=== PATIENT | male | born 1935 | race Caucasian/White ===

== ENCOUNTER 2019-04-13 13:46 | Emergency (ER) | payer MEDICARE, BC ==
[~2019-04-13] VITALS: Ht 174 cm; Wt 77.3 kg
[~2019-04-13 13:46] MED LIST: ASPIRIN EC81 M1 PO; BENICAR40 MG PO; MULTI-DAY VITAM1 TAB PO; NIFEDIPINE ER60 MG PO; PLAVIX75 MG PO; PRAVACHOL40 MG PO; VITAMIN D3400 UNI1 PO
[2019-04-13 13:50] VITALS: Ht 174 cm; Wt 77.3 kg
[2019-04-13] MEDS ORDERED: ANTIVERT12.5 MG PO (15:02)
[2019-04-13 15:13] VITALS: BP 158/88
== END 2019-04-13 15:14 | disposition home or self-care (01) ==
LOC: D.ER 13:46
DX: R20.2 Paresthesia of skin (principal); R53.1 Weakness; I10 Essential (primary) hypertension

== ENCOUNTER → 2019-06-03 13:07 | Outpatient (CLI) | payer MEDICARE, BC ==
[2019-04-13 13:50] VITALS: BMI 25.5
[~2019-06-03 13:07] MED LIST changes: +ANTIVERT12.5 MG PO; +COZAAR50 MG PO
[2019-06-03 13:57] LABS: CREATININE - SERUM 1.7 mg/dL (0.6-1.3)
== END | disposition home or self-care (01) ==
LOC: D.LAB 13:00 → D.CT 13:30
PROVIDERS: ATTEND Internal Medicine Cardiovascular Disease
DX: I65.23 Occlusion and stenosis of bilateral carotid arteries (principal)

== ENCOUNTER 2019-06-10 05:25 | Outpatient (CLI) | payer MEDICARE, BC ==
[~2019-06-10] VITALS: Ht 174 cm; Wt 80.0 kg
--- NOTE | ~2019-06-10 | HEMODYNAMI ---
PATIENT:RAKEL PAVON MEDICAL RECORD: [id number] : 33 [id number] ADMISSION DATE: 06/10/19 Generatedon:06/10/20199:21 Patient name: RAKEL PAVON Patient #: [id number] SSN: : 1 11/08/1934 Date of study: 06/10/2019 Page: Of Hemodynamic Procedure Report Patient Data Patient Demographics Procedure consent was obtained First Name: RAKEL Gender: Male Last Name: SAVANAH : 1935 [facility] Initial: E Age: 83 year(s) Patient #: [id number] Race: Additional ID: [id number] Contact details [address]: [address] [place] [address] State: [place] City: [place] Zip code: [address] Past Medical History Allergies Allergen Reaction Date Comments Reported Other allergy 07/13/2015 PENICILLINS Penicillins 06/10/2019 Admission Admission Data Admission Date: 06/10/2019 Admission Time: 5:25 Procedure Procedure Types Cath Procedure Peripheral Cath Diagnostic Procedure Gas Appliance Adjuster Peripheral Procedures Four Vessel Arteriogram Procedure Description Procedure Date Procedure Date: 06/10/2019 Procedure Start Time: 8:37 Procedure Staff Name Function Krishan Dewitt MD Performing Physician MARCIAL THOMPSON RT Monitor Keyona Morales RN Nurse Suri Silva RN Nurse Ronald English RT Scrub Procedure Data Cath Procedure Fluoroscopy Diagnostic fluoroscopy Total fluoroscopy Time: time: 11.2 min 11.2 min Entry Location Entry Primary Successful Side Size Upsize Upsize Entry Closure Succes sful Closure Location (Fr) 1 (Fr) 2 (Fr) Remarks Device Remarks Femoral Right 5 Fr Exoseal artery Diagnostic catheters Device Type Used For End Catheter Placement Merit ULTRA BOLUS FLUSH 5Fr 90CM catheter ([id number]) Merit Impress Gonzales 5FR. 100CM catheter ([id number]) Procedure Medications Medication Administration Route Dosage Heparin Flush Bag added to field 3 bags (1000units/500ml NS) Lidocaine 1% added to field 20 Hydralizine I.V. 20 mg Versed I.V. 0.5 mg Fentanyl I.V. 25 mcg Hemodynamics Rest Heart Rate: 76 (bpm) Snapshots Pre Cath Intra NCS Post Cath Vital Signs Time Heart Resp SPO2 etCO2 NIBP (mmHg) Rhythm Pain Sedation Rate (ipm) (%) (mmHg) Status Level (bpm) 8:16:47 78 11 99 28.6 Measuring NSR 0 (11) 10(A) , No pain 8:17:08 73 11 99 30 190/100(146) NSR 0 (11) 10(A) , No pain 8:21:34 73 8 100 30.8 191/92(145) NSR 0 (11) 10(A) , No pain 8:26:02 75 8 99 30.8 189/89(153) NSR 0 (11) 10(A) , No pain 8:30:31 71 8 99 32.3 188/89(146) NSR 0 (11) 10(A) , No pain 8:34:30 75 13 99 27.8 177/90(139) NSR 0 (11) 10(A) , No pain 8:38:52 83 15 99 27 172/88(137) NSR 0 (11) 8(A) , No pain 8:43:17 84 15 99 24.8 177/85(143) NSR 0 (11) 8(A) , No pain 8:47:41 81 13 99 31.6 167/88(152) NSR 0 (11) 8(A) , No pain 8:52:01 85 12 99 26.3 173/87(135) NSR 0 (11) 8(A) , No pain 8:56:21 85 9 100 22.5 173/83(136) NSR 0 (11) 8(A) , No pain 9:00:45 88 11 100 26.3 172/84(133) NSR 0 (11) 8(A) , No pain 9:05:06 83 11 100 25.5 169/85(144) NSR 0 (11) 8(A) , No pain 9:09:28 80 9 100 25.5 169/84(128) NSR 0 (11) 8(A) , No pain 9:13:48 88 11 100 18.8 174/97(122) NSR 0 (11) 8(A) , No pain 9:18:14 81 8 99 25.5 169/81(115) NSR 0 (11) 8(A) , No pain Medications Time Medication Route Dose Verified Delivered Reason Notes Eff ectiveness by by 8:22:58 Heparin Flush added 3bags M Dottie Dewitt used for Bag to MD MUNOZ procedure (1000units/500ml field NS) 8:23:14 Lidocaine 1% added 20ml Krishan Sinclair Esdras used for to vial MD MUNOZ procedure field 8:31:16 Hydralizine I.V. 20mg M Dottie Rand for MD Andrew HILL hypertension 8:35:25 Versed I.V. 0.5 M Dottie Rand for sedation mg MD Morales RN 8:36:00 Fentanyl I.V. 25 M Dottie Rand for sedation mcg MD Andrew HILL Procedure Log Time Note 8:02:48 Keyona Morales RN sent for patient. Start room use. 8:02:49 Time tracking: Regular hours (M-F 7:00 - 5:00) 8:02:55 Patient received from Outpatients to IR Alert and oriented. Tansferred to table in Supine position. 8:02:57 Signed procedure consent form obtained from patient. 8:02:58 Correct patient and procedure confirmed by team. 8:02:59 8:03:05 H&P Date Dictated: 06/10/2019 H&P Addendum completed by physician on day of procedure. (MUST COMPLETE FOR ALL OUTPATIENTS). 8:03:07 Pre-procedure instructions explained to patient. 8:03:08 Pre-op teaching completed and patient verbalized understanding. 8:03:12 Patient NPO since Midnight. 8:09:16 Patient allergic to Penicillins 8::19 Is the patient allergic to Iodine/contrast media? No. 8:09:21 Is patient on blood thinner?Yes last dose 06/09/19 8:09:27 ACC The patient was administered the following blood thiners within the last 24 hours: ACCAspirin, ACCPlavix 8:09:45 Patient diabetic? No. 8:09:49 8:09:53 Snore? Yes 8:09:57 Previous problem with sedation/anesthesia? No ? 8:10:00 Sleep apnea? No 8:10:01 Deviated septum? No 8:10:02 Opens mouth fully? Yes 8:10:03 Sticks out tongue? Yes 8:10:06 Airway obstruction? No ? 8:10:40 Dentures? Yes in tight 8:10:43 8:10:51 IV patent on arrival in left hand with 0.45%NaCl at O. 8:10:58 Pre procedure: right dorsailis pedis pulse Doppler 8:11:00 Pre procedure: left dorsailis pedis pulse Doppler 8:11:03 Pre procedure: right posterior tibial pulse Doppler 8:11:07 Pre procedure: left posterior tibial pulse Doppler 8:11:10 8:11:16 Use device set IR Diagnostic 8:11:29 Right groin area was prepped with chlora-prep and draped in sterile fashion 8:11:31 Alarms reviewed by Madisyn Jones 8:11:32 Sharps counted by scrub and verified by Camila 8:11:34 8:14:57 ECG and BP/O2 sat monitors applied to patient. 8:14:58 Baseline sample Acquired. 8:14:58 Vital chart was started 8:14:59 Full Disclosure recording started 8:15:10 8:15:13 Tegaderm 4 x 4 (1626W) opened to sterile field. 8:15:14 Sterile Angiographic Pack opened to sterile field. 8:15:15 Bag Decanter (2002S) opened to sterile field. 8:15:15 ACIST Manifold (34590) opened to sterile field. 8:15:16 ACIST Hand Control (23842) opened to sterile field. 8:15:16 ACIST Syringe (66847) opened to sterile field. 8:15:17 DOC .035 wire (U22458) opened to sterile field. 8:15:20 SHEATH 5FR [place] (PCO226) opened to sterile field. 8:15:21 MICROPUNCTURE 4FR Cook (O26282) opened to sterile field. 8:15:37 TUBING Contrast Injection High Pressure (HVX888L) opened to sterile field. 8:22:58 Heparin Flush Bag (1000units/500ml NS) 3bags added to field was administered by Krishan Dewitt MD; used for procedure; 8:23:14 Lidocaine 1% 20ml vial added to field was administered by Krishan Dewitt MD; used for procedure; 8:26:47 A [employer] ULTRA BOLUS FLUSH 5Fr 90CM catheter ([id number]) was advanced over the wire. 8:30:58 8:31:02 Physician arrived 8:31:16 Hydralizine 20mg I.V. was administered by Keyona Morales RN; for hypertension; 8:33:00 --------ALL STOP TIME OUT------ 8:33:00 Final Timeout: patient, procedure, and site verified with staff and physician. All members of the team are in agreement. 8:34:47 Right groin site verified by team. 8:34:51 Fire Safety Assessment: A--An alcohol-based skin anteseptic being used preoperatively., C--Open oxygen or nitrous oxide is being used. 8:34:57 2) 60-89 Mildly reduced kidney function, and other findings (as for stage 1) point to kidney disease. 8:35:08 Procedure started. 8:35:25 Versed 0.5 mg I.V. was administered by Keyona Morales RN; for sedation; 8:36:00 Fentanyl 25 mcg I.V. was administered by Keyona Morales RN; for sedation; 8:37:45 Local anesthetic to right femoral artery with Lidocaine 1% by Krishan Dewitt MD.INITIAL ACCESS ONLY 8:37:46 Access obtained with 4Fr micropunture. 8:37:52 8:40:22 A 5 Fr sheath was inserted into the Right Femoral artery 8:45:22 A Alexander Gonzales 5FR. 100CM catheter ([id number]) was advanced over the wire. 8:53:04 GLIDE WIRE .035 180CM STRAIGHT (IT2648) opened to sterile field. 8:53:10 TORQUE DEVICE PLASTIC .038 ( TD01) opened to sterile field. 9:12:43 Sheath removed intact; hemostasis achieved with Exoseal to the Right Femoral artery. 9:12:54 Procedure ended.(Physican Out) 9:14:46 Fluoroscopy time 11.20 minutes. 9:14:53 Dose Area Product 332 mGy/cm. 9:14:56 Sharps counted by scrub and verified by R.N. 9:15:01 Insertion/operative site no bleeding no hematoma. 9:15:06 Post right femoral artery:stable 9:15:11 Procedure and supply charges have been captured, reviewed, submitted and are correct. 9:20:55 Vital chart was stopped Device Usage Item Name Manufacture Quantity Catalog Number Hospital Part Current [facility] Lot# / Charge Number Stock Stock Serial# Code TUBING High Merit 1 [id number] 90667 769007 10 Pressure Medical Extension Tubing (Piedra) ([id number]) Tegaderm 4 x 4 3M 1 1626W 792234 815146 511038 5 (1626W) Sterile Cardinal 1 [id number] 162890 755511 5 Angiographic Health Pack Bag Decanter Microtek 1 2002S 481807 82677 210818 5 (2002S) Medical Inc. ACIST Manifold Acist 1 64515 478732 937769 368236 5 (16126) Medical Systems Inc ACIST Hand Acist 1 97842 677746 175209 503519 5 Control Medical (92175) Systems Inc ACIST Syringe Acist 1 84750 893583 699465 847821 20 (49752) Medical Systems Inc DOC .035 wire Cook Medical 1 R20129 191790 639856 5 (I83251) SHEATH 5FR Terumo 1 RIC520 991881 065942 963290 5 [place] (RII374) MICROPUNCTURE Cook Medical 1 A24999 442219 083050 718519 5 4FR Cook (T13708) TUBING Merit 1 [id number] 193987 540504 813797 5 [id number] Contrast Medical Injection High Pressure (BKV780L) Merit ULTRA Merit 1 [id number] 246975 824614 5 BOLUS FLUSH Medical 5Fr 90CM catheter ([id number]) Merit Impress Merit 1 [id number] 179972 149525 5 Gonzales 5FR. Medical 100CM catheter (098437QAM) Merit Impress Merit 1 [id number] 140671 872870 805682 5 Gonzales 5Fr Medical 125CM catheter (055125HMC) TUBING High Merit 1 [id number] 147797 495987 0 5 Pressure Medical Extension (IABP) GLIDE WIRE Terumo 1 IX2025 690104 773925 5 .035 180CM STRAIGHT (ZY6796) TORQUE DEVICE [place] 1 TD01 039845 813454 539941 5 PLASTIC .038 ( Scientific TD01) Signature Audit [place] Stage Time Signature Unsigned Intra-Procedure 06/10/2019 MARCIAL THOMPSON RT 9:21:55 AM (R) Signatures Monitor : MARCIAL THOMPSON RT Signature : Date : Time : [address] [address]
[~2019-06-10 05:25] MED LIST changes: -COZAAR50 MG PO
[2019-06-10 05:45] LABS: BASOPHILS 0.6 % (0-2); EOSINOPHILS 6.8 % (0-7); HEMATOCRIT 41.6 % (42.0-54.0); HEMOGLOBIN 15.2 g/dL (13.5-17.5); IMMATURE GRANULOCYTES 0.3 % (0-5); LYMPHOCYTES 40.4 % (15-50); MCH 33.9 pg (26.0-34.0); MCHC 36.5 g/dL (31.0-37.0); MCV 92.9 fL (80.0-100.0); MEAN PLATELET VOLUME 8.9 fL (7.4-10.4); MONOCYTES 7.1 % (2-11); NEUTROPHILS 44.8 % (40-80); PLATELET COUNT 175 10x3/uL (130-400); RBC 4.48 10x6/uL (4.20-6.10); RDW 12.6 % (11.5-14.5); WBC 7.2 10x3/uL (4.8-10.8)
[2019-06-10 06:01] LABS: ANION GAP 10.7 mmol/L (8-16); CALCIUM 9.2 mg/dL (8.5-10.1); CARBON DIOXIDE 28.3 mmol/L (21.0-32.0); CREATININE - SERUM 1.4 mg/dL (0.6-1.3)
[2019-06-10 06:03] LABS: APTT 26.6 SECONDS (22.8-39.4); INR 1.04 (0.85-1.17); PROTIME 13.1 SECONDS (11.6-15.0)
[2019-06-10] MEDS ORDERED: PLAVIX75 MG PO (06:15)
[2019-06-10 06:35] VITALS: BP 197/83; Ht 174 cm; Wt 80.0 kg
--- NOTE | 2019-06-10 09:50 | NUR ---
0385 SEE POST PROCEDURE CHECKLIST FOR VITAL SIGN TRENDS. FAMILY AT BEDSIDE.
--- NOTE | 2019-06-10 10:30 | NUR ---
[address] VICTOR' NURSE. GROIN SITE CDI WITHOUT HEMATOMA. 1015 FINGER FOOD SERVED, BED TILTED FOR HEAD ELEVATION. SON AND AT SIDE.
--- NOTE | 2019-06-10 11:32 | NUR ---
3262 CATRINA RETURNED CALL, I INFORMED HER OF DR. CRAFT' RELEASE TIME FOR THIS PT AND SHE SAID THANK YOU IF DR. FLETCHER HAS NOT ROUNDED ON THIS PT BEFORE RELEASE HE IS TO GO TO THE 'S OFFICE AFTER RELEASE.
--- NOTE | 2019-06-10 15:08 | NUR ---
4251 I CHECKED WITH CATRINA AND PT IS TO GO SEE DR. FLETCHER AT HIS OFFICE. TO OFFICE VIA .
[2019-06-11] MEDS ORDERED: COZAAR50 MG PO (09:28)
== END 2019-06-10 15:09 | disposition home or self-care (01) ==
LOC: D.SP 05:25
PROVIDERS: Radiology Vascular & Interventional Radiology; ATTEND Thoracic Surgery (Cardiothoracic Vascular Surgery)
DX: I65.21 Occlusion and stenosis of right carotid artery (principal); Z01.812 Encounter for preprocedural laboratory examination

== ENCOUNTER 2019-06-11 06:00 | Inpatient (IN) | payer MEDICARE, BC ==
[~2019-06-11] VITALS: Ht 174 cm; Wt 80.5 kg
[2019-06-11] VITALS (50 sets, daily range): BP systolic 109–182; BP diastolic 45–94; BMI 25.4; BMI 26.7
[2019-06-11 06:44] LABS: HEMATOCRIT 42.7 % (42.0-54.0); HEMOGLOBIN 15.6 g/dL (13.5-17.5); MCH 33.6 pg (26.0-34.0); MCHC 36.5 g/dL (31.0-37.0); MEAN PLATELET VOLUME 9.2 fL (7.4-10.4); RBC 4.64 10x6/uL (4.20-6.10); RDW 12.9 % (11.5-14.5); WBC 8.5 10x3/uL (4.8-10.8)
[2019-06-11 07:11] LABS: ALBUMIN 3.9 g/dL (3.4-5.0); ANION GAP 17.5 mmol/L (8-16); BILIRUBIN - TOTAL 1.52 mg/dL (0.2-1.3); CALCIUM 9.2 mg/dL (8.5-10.1); CARBON DIOXIDE 21.3 mmol/L (21.0-32.0); CREATININE - SERUM 1.5 mg/dL (0.6-1.3); POTASSIUM - SERUM 3.8 mmol/L (3.5-5.1); PROTEIN - SERUM 7.2 g/dL (6.4-8.2)
[2019-06-11 08:03] LABS: APTT 27.4 SECONDS (22.8-39.4); INR 1.03 (0.85-1.17)
[2019-06-11 08:15] LABS: APPEARANCE CLEAR (CLEAR); BACTERIA FEW /hpf (NONE SEEN); BILIRUBIN NEGATIVE (NEGATIVE); COLOR YELLOW (YELLOW); EPITHELIAL CELLS OCC /hpf (0-5); GLUCOSE NEGATIVE (NEGATIVE); KETONE SMALL mg/dL (NEGATIVE); NITRITE NEGATIVE (NEGATIVE); PROTEIN 1+ mg/dL (NEGATIVE); RED CELLS - URINE OCC /hpf (0-5); SPECIFIC GRAVITY 1.015 (1.005-1.020); UROBILINOGEN NORMAL (NORMAL); WHITE CELLS - URINE RARE /hpf (0-5)
[2019-06-11 08:16] LABS: MUCUS <1+ /lpf (NONE SEEN)
[2019-06-11] MEDS ORDERED: COZAAR50 MG PO (09:28)
--- NOTE | 2019-06-11 15:28 | NUR ---
PT ARRIVED AT 1341 LEFT INCISION WITH RASTA DRAIN, ICE APPLIED. RIGHT SUBCLAVIAN CENTRAL LINE DRESSING CDI, RIGHT RADIAL A LINE- WRIST PROTECTOR IN PLACE GOOD WAVE FORM. CRITICORE CORONA CATH. NEURO CHECKS WNL. NOTIFIED BY DR FLETCHER, MONITORS ON AND WORKING, WILL CONTINUE TO OBSERVE.
--- NOTE | 2019-06-11 16:00 | NUR ---
FAMILY AT BEDSIDE, HOB UP 45DEG, MONITORS ON AND WORKING, NEURO CHECKS WNL, PT AAO, VITALS STABLE, CALL LIGHT WITHIN REACH, WILL CONTINUE TO OBSERVE.
--- NOTE | 2019-06-11 18:00 | NUR ---
PT SITTING UP IN BED, FAMILY AT BEDSIDE, PT TOLERATES REGULAR DIET WELL. PT DENIES ANY COMPLAINT OF PAIN OR DISCOMFORT AT THIS TIME. CALL LIGHT WITHIN REACH, WILL CONTINUE TO OBSERVE.
--- NOTE | 2019-06-11 19:30 | NUR ---
PT AOX4, LT PUPIL IS BIGGER THAN RIGHT PUPIL, PT STATES PUPILS WERE UNEQUAL PRIOR TO SURGERY, BOTH PUPILS REACTIVE TO LIGHT. TONGUE MIDLINE, WEIGHER AND CRUSHER EQUAL, STRENGTH IN EXTREMITIES EQUAL. FOLLOWS COMMANDS. LUNG SOUNDS CLEAR/DIMINISHED, SPO2 97, 2L O2 VIA NC. S1S2 HEARD, PERIPHERAL PULSES PRESENT. LT NECK INCISION WITH DRESSING CDI, NO SWELLING PRESENT. LT CHEST RASTA SITE WITH DRESSING CDI, BLOODY DRAINAGE, RASTA COMPRESSED. PT REPOSITIONED FOR COMFORT. PROMINENCES BRIDGED. DENIES PAIN AT THIS TIME, DENIES FURTHER NEEDS. CALL LIGHT AND BEDSIDE TABLE WITHIN PT REACH. CPOC.
--- NOTE | 2019-06-11 21:30 | NUR ---
SEE IV FLOWSHEET FOR TITRATIONS, NO OTHER CHANGES NOTED AT THIS TIME. VSS, PT REPOSITIONED FOR COMFORT. REACHING 1500 X10 ON I/S. FRESH WATER TO BEDSIDE. DENIES FURTHER NEEDS. CALL LIGHT WITHIN PT REACH. CPOC.
--- NOTE | 2019-06-11 23:30 | NUR ---
REASSESSMENT COMPLETE, SEE FLOWSHEET. NO CHANGES AT THIS TIME. PT REPOSITIONED WITH PROMINENCES BRIDGED. DENIES PAIN, VSS.
[2019-06-12] VITALS (58 sets, daily range): BP systolic 107–151; BP diastolic 42–71; Ht 174 cm; Wt 80.5 kg
--- NOTE | 2019-06-12 00:30 | NUR ---
PT REPOSITIONED, PARTIAL LINEN CHANGE PROVIDED. FRESH WATER PROVIDED. VSS, DENIES PAIN AT THIS TIME. DENIES FURTHER NEEDS. CALL LIGHT WITHIN PT REACH. CPOC.
--- NOTE | 2019-06-12 03:30 | NUR ---
REASSESSMENT COMPELTE, SEE FLOWSHEET. PT REMAINS AOX4, TONGUE MIDLINE, CENTRAL OFFICE INSPECTOR EQUAL, MOVES EXTREMITIES X4 AGAINST GRAVITY. LT NECK WITH DRSG CDI, NO TRACHEAL DEVIATION. DENIES PAIN, VSS. CPOC.
--- NOTE | 2019-06-12 05:43 | NUR ---
NIMA AT BEDSIDE, RASTA DRAIN D/C'D, TOLERATED WELL. VSS.
--- NOTE | 2019-06-12 07:00 | NUR ---
REPORT RECIEVED FROM THE OFF GOING RN. SEE ASSESSMENT IN THE PTS FLOW SHEET. PT LYING IN BED A&O X4. PUPILS UNSYMMETRICAL BUT REACTIVE TO LIGHT. PT STATES IT HAS BEEN LIKE THAT FOR A WHILE. LEFT NECK DRESSING C/D/I. LEFT UPPER CHEST DRESSING C/D/I. RIGHT SUBCLAVIAN DRESSING C/D/I. NITRO AND CLEVIPREX INFUSING. SEE IV FLOW SHEET FOR RATES. NITRO DECREASED FOR BP PARAMETERS. RIGHT RADIAL IRMA NOTED. WRIST PROTECTOR ON. CAP REFILL <[address] WITH CLEAR, YELLOW URINE. PT SYMMETRICAL WITH ROAD WORKER AND SMILE. TRACHEA MIDLINE WITH NO STRIDOR NOTED. PT DENIES DYSPAGIA. DENIES PAIN. CALL LIGHT IN REACH. WILL CONT POC.
--- NOTE | 2019-06-12 07:52 | NUR ---
PT PULLS ABOUT 2000 ON HIS IS. INSTRUCTED TO USE 10X'S/H. WILL CONT POC.
--- NOTE | 2019-06-12 08:00 | NUR ---
BREAKFAST TRAY PROVIDED FOR THE PT. PT TOLERATING WELL. NO DYSPAGIA NOTED. VSS WILL CONT POC. NITRO OFF.
--- NOTE | 2019-06-12 08:47 | NUR ---
REPORT GIVEN TO AARTI HILL.
--- NOTE | 2019-06-12 13:00 | NUR ---
REC'D REPORT AND RESUMED CARE, AAO, SITTING UP IN BED, DENIES PAIN, STATES HE IS READY TO GO HOME, ASSESSMENT COMPLETED, AT BEDSIDE, NO NEEDS AT THIS TIME, CALL LIGHT IN REACH
--- NOTE | 2019-06-12 13:58 | OP ---
PATIENT NAME: RAKEL PAVON MEDICAL RECORD: [id number] :33 LOCATION:[facility].CV08 ADMISSION DATE:06/11/19 SURGEON: LUPILLO FLETCHER MD DATE OF OPERATION: 06/11/2019 SURGEON: Lupillo Fletcher MD ANESTHESIA: General; Sid Doty MD OPERATION PERFORMED: Left carotid endarterectomy with patch angioplasty. PREOPERATIVE DIAGNOSIS: Critical left internal carotid artery stenosis. POSTOPERATIVE DIAGNOSIS: Critical left internal carotid artery stenosis. INDICATION FOR OPERATION: Critical left internal carotid artery stenosis. FINDINGS AT OPERATION: Critical left internal carotid artery stenosis. There were no EEG changes with clamping or unclamping of the carotid. ESTIMATED BLOOD LOSS: Less than 75 mL. DESCRIPTION OF PROCEDURE: After informed consent, adequate preoperative medication, and evaluation, the patient was brought to the operating room and placed on the table in supine position. After induction of general endotracheal anesthesia and application of appropriate monitoring devices, the left neck and chest were prepped and draped in sterile field utilizing Betadine scrub, alcohol, and Betadine solution. A Betadine-impregnated drape was also used. An oblique incision was made in skin crease. Dissection was carried down to the fascia. Hemostasis was maintained with electrocautery. Facial vein was identified and divided. Utilizing sharp dissection, common carotid, internal and external carotid arteries were dissected free of surrounding structures, protecting the neurological structures. The patient was given a calculated dose of heparin. After 3 minutes, clamps were applied. After 2 minutes, no EEG change. An arteriotomy was made and extended with Dominguez scissors. Artery underwent endarterectomy sharply. Artery underwent extensive debridement and irrigation. Utilizing a CorMatrix vascular patch and a running 6-0 Prolene suture, the arteriotomy was closed with patch angioplasty technique. All maneuvers to remove trapped air were performed. Clamps were removed sequentially. There were no EEG changes. The patient was given a calculated dose of protamine to reverse the heparin. Hemostasis was achieved. A #7 Hakan-Poole drain was left to depths of the wound and brought through base of the neck. Neck was again irrigated. Instrument count and sponge count were correct times 2. Neck was closed in layers utilizing 3-0 Vicryl on deep subcutaneous tissue and 5-0 subcuticular Monocryl on skin. Sterile dressings were applied. The patient tolerated the procedure well and was transferred to CV ICU in satisfactory condition. TRANSINT:[id number] Voice Confirmation ID: [id number] DOCUMENT ID: [id number] OPERATIVE REPORT [id number] RAKEL PAVON EDWARD MD at 1358 CC: [id number] DICTATION DATE: 06/11/19 1337 ACCREDITATION MANAGER: 06/11/19 1417 [place] [address]
--- NOTE | 2019-06-12 14:05 | NUR ---
PT EVAL AND AMBULATION WITH PHYSICAL THERAPIST, TOLERATED WITHOUT DIFFICULTY
--- NOTE | 2019-06-12 15:17 | NUR ---
CHG BATH COMPLETED, TOLERATED WITHOUT DIFFICULTY
--- NOTE | 2019-06-12 15:27 | MORECARE ---
CASE MANAGEMENT DISCHARGE SUMMARY PATIENT: RAKEL PAVON UNIT: [id number] ADM DATE: 06/11/19 AGE: 83 : [birth year] SEX: M ROOM/BED: [facility] AUTHOR: AVINASHDOC PHYSICIAN: REFERRING PHYSICIAN: GEOFFREY FLETCHER MD DATE OF SERVICE: 06/12/19 Discharge Plan Patient Name: RAKEL PAVON Facility: [facility]:[place] : 1935 Planned Disposition: Home Anticipated Discharge Date: Discharge Date: Expected LOS: Initial Reviewer: [email or web address] Initial Review Date: 06/11/2019 Generated: 06/12/19 4:27 pm Comments DCP- Discharge Planning Updated by [email or web address]: Anna Donaldson on 06/12/19 2:[address] Patient Name: RAKEL PAVON Admission Status: Urgent Accout number: [id number] Admission Date: 06-11-2019 : 1935 Admission Diagnosis: Attending: GEOFFREY FLETCHER Current LOS: 1 Anticipated DC Date: Planned Disposition: Home Primary Insurance: MEDICARE A & B Discharge Planning Comments: CM met with patient at bedside after explaining CM role and obtaining verbal consent. Patient lives at home with his Tracy where he is independent with his care and plans to return there upon discharge. Patient feels this would be a safe discharge. CM discussed availability / needs of home health and medical equipment. Patient denies any discharge needs at this time. Patient states he will have his family drive him home upon discharge. CM will continue to follow and assist as needed with discharge planning / needs. Life Underwriter: Anna Donaldson DCPIA - Discharge Planning Initial Assessment Updated by [email or web address]: Anna Donaldson on 06/12/19 3:25 pm * Is the patient Alert and Oriented? Yes * How many steps to enter\exit or inside your home? * PCP B[facility]ARD * [facility] * Preadmission Environment Home with Family * ADLs Independent * Other Equipment CANE * List name and contact numbers for known caregivers / representatives who currently or will assist patient after discharge: TRACY PAVON - [facility]- [phone] * Verbal permission to speak to the caregivers and representatives has been obtained from the patient. Yes * Community resources currently utilized None * Additional services required to return to the preadmission environment? No * Can the patient safely return to the preadmission environment? Yes * Has this patient been hospitalized within the prior 30 days at any hospital? No Patient Name: RAKEL PAVON Page 25562 at 1527 All edits/amendments must be made on the electronic document DICTATION DATE: 06/12/191526 INDUSTRIAL CONTROLS TECHNICIAN: PRASAD 06/12/191526 RPT#: [id number] DC DATE: STATUS: ADM IN [facility] [address] [place] [address] END OF REPORT
--- NOTE | 2019-06-12 17:00 | NUR ---
DINNER TRAY TO BEDSIDE, ASSIST WITH SET UP INDEPENDENT WITH EATING
--- NOTE | 2019-06-12 18:10 | NUR ---
CALLED TO ROOM, HAVING TROUBLE ADJUSTING BED, EDUCATED RE: BUTTONS, NOW FABIOLA TO ADJUST BED APPROPRIATELY
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
--- NOTE | 2019-06-12 21:10 | NUR ---
NO CHANGES IN NEURO CHECKS FROM PREVIOUS, AAOX4, FOLLOWING COMMANDS. DENIES NEEDS. CALL LIGHT WITHIN REACH. WILL CONTINUE TO MONITOR.
--- NOTE | 2019-06-12 23:04 | NUR ---
REASSESSMENT COMPLETED PER FLOW SHEET, SEE FOR DETAILS. NO ACUTE CHANGES NOTED. DENIES NEEDS. CALL LIGHT WITHIN REACH. WILL CONTINUE TO MONITOR.
[2019-06-13] VITALS (10 sets, daily range): BP systolic 120–151; BP diastolic 62–73
--- NOTE | 2019-06-13 01:00 | NUR ---
RESTING IN BED, DENIES NEEDS AT THIS TIME, CALL LIGHT WITHIN REACH. WILL CONTINUE TO MONITOR.
--- NOTE | 2019-06-13 03:10 | NUR ---
REASSESSMENT COMPLETED PER FLOW SHEET, SEE FOR DETAILS. NO ACUTE CHANGES NOTED. 350 ML OF SANCHO UOP EMPTIED FROM URINAL. DENIES NEEDS. CALL LIGHT WITHIN REACH. WILL CONTINUE TO MONITOR.
--- NOTE | 2019-06-13 05:10 | NUR ---
AAOX4, DENIES NEEDS AT THIS TIME, NO ACUTE DISTRESS NOTED. WILL CONTINUE TO MONITOR.
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
--- NOTE | 2019-06-13 14:19 | MORECARE ---
CASE MANAGEMENT DISCHARGE SUMMARY PATIENT: RAKEL PAVON UNIT: [id number] ADM DATE: 06/11/19 AGE: 83 : 34 SEX: M ROOM/BED: D[facility] AUTHOR: AVINASH,DOC PHYSICIAN: REFERRING PHYSICIAN: GEOFFREY LFETCHER MD DATE OF SERVICE: 06/13/19 Discharge Plan Patient Name: RAKEL PAVON Facility: [facility]:[place] : 1935 Planned Disposition: Home Anticipated Discharge Date: Discharge Date: 06/13/2019 Expected LOS: Initial Reviewer: [email or web address] Initial Review Date: 06/11/2019 Generated: 06/13/19 3:18 pm Comments DCP- Discharge Planning Updated by [id number]: Anna Donaldson on 06/12/19 2:[address] Patient Name: RAKEL PAVON Admission Status: Urgent Accout number: [id number] Admission Date: 06-11-2019 : 1935 Admission Diagnosis: Attending: GEOFFREY FLETCHER Current LOS: 1 Anticipated DC Date: Planned Disposition: Home Primary Insurance: MEDICARE A & B Discharge Planning Comments: CM met with patient at bedside after explaining CM role and obtaining verbal consent. Patient lives at home with his Tracy where he is independent with his care and plans to return there upon discharge. Patient feels this would be a safe discharge. CM discussed availability / needs of home health and medical equipment. Patient denies any discharge needs at this time. Patient states he will have his family drive him home upon discharge. CM will continue to follow and assist as needed with discharge planning / needs. Waxed Bag Machine Operator: Anna Donaldson DCPIA - Discharge Planning Initial Assessment Updated by [email or web address]: Anna Donaldson on 06/12/19 3:25 pm * Is the patient Alert and Oriented? Yes * How many steps to enter\exit or inside your home? * PCP BERNARD * [facility] * Preadmission Environment Home with Family * ADLs Independent * Other Equipment CANE * List name and contact numbers for known caregivers / representatives who currently or will assist patient after discharge: TRACY PAVON - [facility]- [phone] * Verbal permission to speak to the caregivers and representatives has been obtained from the patient. Yes * Community resources currently utilized None * Additional services required to return to the preadmission environment? No * Can the patient safely return to the preadmission environment? Yes * Has this patient been hospitalized within the prior 30 days at any hospital? No Coverage Notice Reviewer: [id number] Poornima Donaldson Notice Issued Date-Time: 06/12/2019 15:20 Notice Type: IM Discharge Notice Notice Delivered To: Patient Relationship to Patient: Self Carpenter Railcar Name: Delivery Method: HAND - Hand Delivered Shantal Days: Prior Verbal Notification: Recipient Understood Notice: Yes Recipient Signature: Yes Med Rec Note Co-signed by Attending: Coverage Notice Comment: Last DP export: 06/12/19 2:27 p Patient Name: RAKEL PAVON Page 42055 at 1419 All edits/amendments must be made on the electronic document DICTATION DATE: 06/13/191417 SUGAR MILL WORKER: PRASAD 06/13/19 1418 RPT#: [id number] DC DATE:06/13/19 STATUS: DIS IN [facility] [address] [place] [address] END OF REPORT
== END 2019-06-13 10:30 | disposition home or self-care (01) | DRG 38 ==
LOC: D.CVICU 06:00 → D.SDCHOLD 06:00 → D.CVICU 12:46
PROVIDERS: ADMIT Internal Medicine Cardiovascular Disease; ATTEND Internal Medicine Cardiovascular Disease
PROC: 03UL0JZ Supplement Left Internal Carotid Artery with Synthetic Substitute, Open Approach (ICD-10-PCS; 2019-06-11)
PROC: 03CL0ZZ Extirpation of Matter from Left Internal Carotid Artery, Open Approach (ICD-10-PCS; principal; 2019-06-11 11:15)
DX: I65.23 Occlusion and stenosis of bilateral carotid arteries (principal); I69.351 Hemiplegia and hemiparesis following cerebral infarction affecting right dominant side; I10 Essential (primary) hypertension; N28.9 Disorder of kidney and ureter, unspecified

== ENCOUNTER 2019-08-21 15:27 | Inpatient (IN) | payer MEDICARE, BC ==
[~2019-08-21] VITALS: Ht 172.7 cm; Wt 81.4 kg
[~2019-08-21 15:27] MED LIST changes: +COZAAR50 MG PO
[2019-08-21 16:45] LABS: APPEARANCE CLEAR (CLEAR); BILIRUBIN NEGATIVE (NEGATIVE); COLOR YELLOW (YELLOW); GLUCOSE NEGATIVE (NEGATIVE); KETONE NEGATIVE (NEGATIVE); NITRITE NEGATIVE (NEGATIVE); PROTEIN 2+ mg/dL (NEGATIVE); UROBILINOGEN NORMAL (NORMAL)
[2019-08-21 16:47] LABS: BACTERIA FEW /hpf (NEGATIVE); EPITHELIAL CELLS 0-5 /hpf (0-5); RED CELLS - URINE 0-5 /hpf (0-5); WHITE CELLS - URINE 0-5 /hpf (NEGATIVE)
[2019-08-21 16:49] LABS: HEMATOCRIT 41.2 % (42.0-54.0); MCH 33.7 pg (26.0-34.0); MCV 99.3 fL (80.0-100.0); RBC 4.15 10x6/uL (4.20-6.10); RDW 12.7 % (11.5-14.5); WBC 7.3 10x3/uL (4.8-10.8)
[2019-08-21 16:52] LABS: APTT 26.7 SECONDS (22.8-39.4); INR 1.11 (0.85-1.17); PROTIME 13.8 SECONDS (11.6-15.0)
[2019-08-21 17:09] LABS: ALBUMIN 3.8 g/dL (3.4-5.0); ANION GAP 11.8 mmol/L (8-16); BILIRUBIN - TOTAL 0.68 mg/dL (0.2-1.3); CARBON DIOXIDE 28.5 mmol/L (21.0-32.0); CREATININE - SERUM 1.6 mg/dL (0.6-1.3); POTASSIUM - SERUM 4.3 mmol/L (3.5-5.1); PROTEIN - SERUM 7.3 g/dL (6.4-8.2)
[2019-08-22] VITALS (15 sets, daily range): BP systolic 103–189; BP diastolic 42–98; BMI 26.9; BMI 26.5
--- NOTE | 2019-08-22 12:45 | NUR ---
BLOOD NOTED AROUND [place] AT END OF CASE. NIMA CHASE NOTIFIED JUSTINE. CVICU NURSE NOTIFIED. NO FURTHER ORDERS RECEIVED.
--- NOTE | 2019-08-22 12:54 | NUR ---
REC'D PT TO CVICU. ALL MONITORING EQUIPMENT ATTACHED AND ALARMS SET.
--- NOTE | 2019-08-22 13:38 | NUR ---
I.S. STARTED. PT PULLS 1500 TO 2000 WITH GOOD EFFORT. FAMILY AT BS.
--- NOTE | 2019-08-22 15:13 | NUR ---
SBP 146. NITRO INITIATED AT 10MCG/MIN. TITRATED TO 12MCG/MIN. SBP NOW 132.
--- NOTE | 2019-08-22 17:24 | MORECARE ---
CASE MANAGEMENT DISCHARGE SUMMARY PATIENT: RAKEL PAVON UNIT: [id number] ADM DATE: 08/22/19 AGE: 83 : 34 SEX: M [facility] AUTHOR: DECLAN DA SILVA PHYSICIAN: REFERRING PHYSICIAN: GEOFFREY FLETCHER MD DATE OF SERVICE: 08/22/19 Discharge Plan Patient Name: RAKEL PAVON [facility] [facility] 1935 Planned Disposition: Home Anticipated Discharge Date: Discharge Date: Expected LOS: Initial Reviewer: [email or web address] Initial Review Date: 08/22/2019 Generated: 08/22/19 6:24 pm DCPIA - Discharge Planning Initial Assessment Updated by [email or web address]: Anna Donaldson on 08/22/19 5:23 pm * Is the patient Alert and Oriented? Yes * How many steps to enter\exit or inside your home? * PCP DR WAGNER * [facility] * Preadmission Environment Home with Family * ADLs Independent * Equipment Cane * List name and contact numbers for known caregivers / representatives who currently or will assist patient after discharge: SUDHEER PAVON - [facility] - [phone] * Verbal permission to speak to the caregivers and representatives has been obtained from the patient. Yes * Community resources currently utilized None * Additional services required to return to the preadmission environment? No * Can the patient safely return to the preadmission environment? Yes * Has this patient been hospitalized within the prior 30 days at any hospital? No Patient Name: RAKEL PAVON Page 61607 at 1724 All edits/amendments must be made on the electronic document DICTATION DATE: 08/22/191723 PUMP STATION OPERATOR: PRASAD 08/22/191723 RPT#: [id number] DC DATE: STATUS: ADM IN [facility] [address] [place] [address] END OF REPORT
--- NOTE | 2019-08-22 17:32 | MORECARE ---
CASE MANAGEMENT DISCHARGE SUMMARY PATIENT: RAKEL PAVON UNIT: [id number] ADM DATE: 08/22/19 AGE: 83 : 34 SEX: M ROOM/BED: D[facility] AUTHOR: AVINASH,DOC PHYSICIAN: REFERRING PHYSICIAN: GEOFFREY FLETCHER MD DATE OF SERVICE: 08/22/19 Discharge Plan Patient Name: RAKEL PAVON Facility: [facility]:[place] : 1935 Planned Disposition: Home Anticipated Discharge Date: Discharge Date: Expected LOS: Initial Reviewer: [email or web address] Initial Review Date: 08/22/2019 Generated: 08/22/19 6:31 pm Comments DCP- Discharge Planning Updated by [email or web address]: Anna Donaldson on 08/22/19 4:[address] Patient Name: RAKEL PAVON Admission Status: Urgent Accout number: [id number] Admission Date: 08-22-2019 : 1935 Admission Diagnosis: Attending: GEOFFREY FLETCHER Current LOS: 1 Anticipated DC Date: Planned Disposition: Home Primary Insurance: MEDICARE A & B Discharge Planning Comments: CM met with patient at bedside after explaining CM role and obtaining verbal consent. Patient lives at home with his [place] where he is independent with his care and plans to return there upon discharge. Patient feels this would be a safe discharge. CM discussed availability / needs of home health and medical equipment. Patient denies any discharge needs at this time. Patient states he will have his family drive him home upon discharge. CM will continue to follow and assist as needed with discharge planning / needs. Labor Specialist: Anna Donaldson DCPIA - Discharge Planning Initial Assessment Updated by [email or web address]: Anna Donaldson on 08/22/19 5:23 pm * Is the patient Alert and Oriented? Yes * How many steps to enter\exit or inside your home? * PCP DR WAGNER * [facility] * Preadmission Environment Home with Family * ADLs Independent * Equipment Cane * List name and contact numbers for known caregivers / representatives who currently or will assist patient after discharge: TRACY PAVON - [facility] - [phone] * Verbal permission to speak to the caregivers and representatives has been obtained from the patient. Yes * Community resources currently utilized None * Additional services required to return to the preadmission environment? No * Can the patient safely return to the preadmission environment? Yes * Has this patient been hospitalized within the prior 30 days at any hospital? No Last DP export: 08/22/19 4:24 p Patient Name: RAKEL PAVON Page [phone] at 1732 All edits/amendments must be made on the electronic document DICTATION DATE: 08/22/191730 SALARY AND WAGE ADMINISTRATOR: PRASAD 08/22/191730 RPT#: [id number] DC DATE: STATUS: ADM IN [facility] [address] [place] [address] END OF REPORT
--- NOTE | 2019-08-22 17:49 | NUR ---
REPORTED LOW UOP TO DR FLETCHER HERE IN ICU. FLUSHED FC. NO BLOODY CLOTS SEEN. FLUSHES EASILY. WILL BLADDER SCAN.
--- NOTE | 2019-08-22 18:07 | NUR ---
BLADDER SCANNED AND ZERO IS RESULTS.
--- NOTE | 2019-08-22 18:59 | NUR ---
DR FLETCHER NOTIFIED OF ZERO OUT ON BLADDER SCAN AND LOW UOP. REC'D ORDERS. REC'D ORDER TO TURN OFF NITRO AND ALLOW BP TO BE UP TO 150.
--- NOTE | 2019-08-22 19:00 | NUR ---
Received patient resting in bed with eyes open, assessment completed per flowsheet. Patient AO x4, answers appropriately/follows instructions. R anterior Neck incision dressing CDI, no difficulties breathing/swallowing noted. S1/S2 noted Sinus Aditya on telemetry, rythmic and regular. Breathing is even/unlabored on 2L via NC with O2 sat 99%, lung sounds clear bilateral upper and mid with diminished lower. R upper chest RASTA x1 with small bloody drainage. Abdomen is round/soft with bowel sounds active x4, non-tender. Criticore secured, scant yellow urine noted. L radial A-line with good waveform, wrist protector in use. Remaining pulses palpable with cap refill < 3 sec, skin cool/dry. Denies pain or other needs at this time, see flowsheet for details. All VSS and will continue to monitor.
[2019-08-22 19:51] LABS: MCH 33.2 pg (26.0-34.0); MCHC 33.2 g/dL (31.0-37.0); MEAN PLATELET VOLUME 8.6 fL (7.4-10.4); RDW 12.8 % (11.5-14.5); WBC 7.4 10x3/uL (4.8-10.8)
[2019-08-22 20:00] LABS: HEMATOCRIT 31.6 % (42.0-54.0); HEMOGLOBIN 10.5 g/dL (13.5-17.5); RBC 3.16 10x6/uL (4.20-6.10)
--- NOTE | 2019-08-22 20:15 | NUR ---
Patient demonstrated 1000-1250ml on IS x10 attempts, Flutter performed correctly with RT at bedside.
[2019-08-22 20:17] LABS: BILIRUBIN - TOTAL 0.8 mg/dL (0.2-1.3); CALCIUM 7.5 mg/dL (8.5-10.1); CARBON DIOXIDE 24.6 mmol/L (21.0-32.0)
[2019-08-22 20:18] LABS: ALBUMIN 2.7 g/dL (3.4-5.0); ANION GAP 12.6 mmol/L (8-16); CREATININE - SERUM 2.3 mg/dL (0.6-1.3); POTASSIUM - SERUM 5.2 mmol/L (3.5-5.1); PROTEIN - SERUM 5.4 g/dL (6.4-8.2)
--- NOTE | 2019-08-22 20:30 | NUR ---
Spoke to Dr Jean-Baptiste via phone, updated on patient status. All IV ports swab capped/labeled, patient denies needs at this time and will continue to monitor.
--- NOTE | 2019-08-22 22:50 | NUR ---
Reassessment completed per flowsheet, no changes noted from previous assessment. R anterior neck incision dressing CDI, no difficulty breathing/swallowing noted. R upper chest RASTA x1 with small bloody drainage, compressed. S1/S2 noted Sinus Aditya on telemetry, rythmic and regular. Breathing is even/unlabored on 2L via NC with O2 sat 99%, lung sounds clear bilateral upper and mid with diminished lower. L radial A-line with good waveform, wrist protector in use. Remaining pulses palpable with cap refill < 3 sec, skin warm/dry. See flowsheet for details, all VSS and will continue to monitor.
[2019-08-23] VITALS (25 sets, daily range): BP systolic 113–164; BP diastolic 41–74; Ht 172.7 cm; Wt 81.4 kg
--- NOTE | 2019-08-23 01:00 | NUR ---
Patient resting in bed with eyes closed, no s/s of distress at this time. Urine output remains decreased post Furosemide, < 30ml/hr. HR/BP remain stable, no further needs and will continue to monitor.
--- NOTE | 2019-08-23 02:50 | NUR ---
Reassessment completed per flowsheet, no changes noted from previous assessment. R anterior neck incision dressing CDI, no difficulty breathing/swallowing noted. R upper chest RASTA x1 with small bloody drainage, dressing CDI. S1/S2 noted Sinus Aditya on telemetry, rythmic and regular. Breathing is even/unlabored on 2L via NC with O2 sat 100%, lung sounds clear bilateral upper and mid with diminished lower. L radial A-line with good waveform, remaining pulses palpable. Denies pain or other needs at this time, see flowsheet for details. All VSS and will continue to monitor.
--- NOTE | 2019-08-23 05:00 | NUR ---
Patient resting in bed with eyes open, no s/s of distress at this time. R anterior neck incision dressing CDI, no difficulty breathing/swallowing noted. R upper chest RASTA x1 with small bloody drainage noted, compressed with dressing intact. Full Bed bath/linen change performed, denies pain or other needs and will continue to monitor.
--- NOTE | 2019-08-23 07:10 | NUR ---
Dr Sanford paged to notify of patient bradycardia and increasing creatinine level, orders to consult Renal.
--- NOTE | 2019-08-23 07:35 | NUR ---
Dr Sanford called regarding patient, new orders received. NS @ 150ml/hr x6 hrs then decrease to 100ml/hr, Dopamine @ 3mcg/kg/min to initiate.
[2019-08-23 08:14] LABS: BASOPHILS 0.3 % (0-2); EOSINOPHILS 3.8 % (0-7); HEMATOCRIT 32.3 % (42.0-54.0); HEMOGLOBIN 10.9 g/dL (13.5-17.5); IMMATURE GRANULOCYTES 0.1 % (0-5); LYMPHOCYTES 18.7 % (15-50); MCH 33.7 pg (26.0-34.0); MCHC 33.7 g/dL (31.0-37.0); MEAN PLATELET VOLUME 9.3 fL (7.4-10.4); MONOCYTES 6.1 % (2-11); PLATELET COUNT 139 10x3/uL (130-400); RBC 3.23 10x6/uL (4.20-6.10); WBC 10.6 10x3/uL (4.8-10.8)
[2019-08-23 08:21] LABS: ANION GAP 15.8 mmol/L (8-16); CALCIUM 8.2 mg/dL (8.5-10.1); CARBON DIOXIDE 21.8 mmol/L (21.0-32.0); POTASSIUM - SERUM 4.6 mmol/L (3.5-5.1)
[2019-08-23 08:22] LABS: CREATININE - SERUM 3.3 mg/dL (0.6-1.3)
--- NOTE | 2019-08-23 19:05 | NUR ---
Received patient resting in bed with eyes closed, assessment completed per flowsheet. Patient AO x4, awakens easily and answers appropriately/follows instructions. R anterior neck incision dressing CDI, no difficulty breathing/swallowing noted. S1/S2 noted NSR with PVC on telemetry, rythmic and regular. Breathing is even/unlabored on room air with O2 sat 93%, lung sounds clear bilateral upper and mid with diminished lower. R upper chest RASTA x1 with scant bloody drainage, compressed. Abdomen is round/soft with bowel sounds active x4, non-tender. Criticore secured, clear yellow urine noted. All pulses palpable with full ROM all extremities, skin cool/dry with cap refill < 3 sec. Denies pain or other needs at this time, see flowsheet for details. All VSS and will continue to monitor.
--- NOTE | 2019-08-23 21:00 | NUR ---
Patient resting in bed with eyes closed, denies pain or needs at this time. All VSS and will continue to monitor.
--- NOTE | 2019-08-23 23:00 | NUR ---
Reassessment completed per flowsheet, no changes noted from previous assessment. S1/S2 noted NSR with PVC on telemetry, rythmic and regular. Breathing is even/unlabored on room air with O2 sat 95%, lung sounds clear bilateral upper and mid with diminished lower. R anterior neck incision dressing CDI, no difficulty breathing/swallowing noted. R upper chest RASTA x1 with scant serosanguinous drainage, compressed. All pulses palpable with cap refill < 3 sec, skin warm/dry. See flowsheet for details, all VSS and will continue to monitor.
[2019-08-24] VITALS (24 sets, daily range): BP systolic 112–175; BP diastolic 44–573
--- NOTE | 2019-08-24 01:00 | NUR ---
Patient sleeping in bed with eyes closed, no s/s of distress at this time. Criticore container emptied, clear yellow urine noted. Denies pain or other needs at this time, all VSS and will continue to monitor.
--- NOTE | 2019-08-24 02:50 | NUR ---
Reassessment completed per flowsheet, no changes noted from previous assessment. Patient AO x4, answers appropriately/follows instructions. S1/S2 noted NSR with PVC on telemetry, rythmic and regular. Breathing is even/unlabored on room air with O2 sat 95%, lung sounds clear bilateral upper and mid with diminished lower. R anterior neck incision dressing CDI, R upper chest RASTA x1 with scant serosanguinous drainage. All pulses palpable with cap refill < 3 sec, skin warm/dry. Denies pain or other needs at this time, see flowsheet for details. All VSS and will continue to monitor.
--- NOTE | 2019-08-24 05:00 | NUR ---
Patient resting in bed with eyes closed, no s/s of distress at this time. Denies pain or other needs at this time, all VSS and will continue to monitor.
[2019-08-24 05:57] LABS: HEMATOCRIT 32.7 % (42.0-54.0); HEMOGLOBIN 11.1 g/dL (13.5-17.5); MCH 33.2 pg (26.0-34.0); MCHC 33.9 g/dL (31.0-37.0); MEAN PLATELET VOLUME 9.1 fL (7.4-10.4); RBC 3.34 10x6/uL (4.20-6.10); RDW 12.6 % (11.5-14.5); WBC 9.7 10x3/uL (4.8-10.8)
[2019-08-24 06:05] LABS: MCV 97.9 fL (80.0-100.0)
[2019-08-24 06:14] LABS: ANION GAP 15.8 mmol/L (8-16); CARBON DIOXIDE 21.2 mmol/L (21.0-32.0)
[2019-08-24 06:15] LABS: CREATININE - SERUM 2.2 mg/dL (0.6-1.3)
[2019-08-24 14:34] LABS: ANION GAP 14.4 mmol/L (8-16); CALCIUM 7.9 mg/dL (8.5-10.1); CARBON DIOXIDE 22.4 mmol/L (21.0-32.0); POTASSIUM - SERUM 3.8 mmol/L (3.5-5.1)
--- NOTE | 2019-08-24 19:00 | NUR ---
PT ASSESSMENT COMPLETED AT THIS TIME, NO CHANGES NOTED FROM NURSE REPORT, VSS, NO DISTRESS NOTED
--- NOTE | 2019-08-24 21:00 | NUR ---
PT DENIES COMPLAINTS AT THIS TIME, VSS, NO DISTRESS NOTED WILL OCNT. TO MONITOR
--- NOTE | 2019-08-24 23:00 | NUR ---
PT REASSESSMENT COMPLETED AT THIS TIME, NO CHANGES SEEN, VSS, WILL CONT. TO MONITOR FOR CHANGES
[2019-08-25] VITALS (9 sets, daily range): BP systolic 138–159; BP diastolic 50–76
--- NOTE | 2019-08-25 01:00 | NUR ---
PT RESTING WITH EYES CLOSED, NO DISTRESS NOTED, VSS, WILL CONT TO MONITOR
--- NOTE | 2019-08-25 03:00 | NUR ---
PT REASSESSMENT COMPLETED AT THIS TIME, NO CHANGES NOTED, VSS, WILL CONT. TO MONITOR FOR CHANGES
--- NOTE | 2019-08-25 05:00 | NUR ---
PT RESTING WITH EYES CLOSED, RESP EVEN NONLABORED, VSS, NO DISTRESS NOTED AT THIS TIME
--- NOTE | 2019-08-25 05:55 | NUR ---
PT GIVEN HCG BATH AND ASSISTED UP TO BEDSIDE CHAIR
[2019-08-25 06:36] LABS: HEMATOCRIT 35.6 % (42.0-54.0); HEMOGLOBIN 12.2 g/dL (13.5-17.5); MCH 33.2 pg (26.0-34.0); MCHC 34.3 g/dL (31.0-37.0); MCV 96.7 fL (80.0-100.0); MEAN PLATELET VOLUME 9.2 fL (7.4-10.4); RBC 3.68 10x6/uL (4.20-6.10); RDW 12.6 % (11.5-14.5); WBC 9.8 10x3/uL (4.8-10.8)
[2019-08-25 06:55] LABS: ANION GAP 13.8 mmol/L (8-16); CALCIUM 8.1 mg/dL (8.5-10.1); CARBON DIOXIDE 23.1 mmol/L (21.0-32.0); CREATININE - SERUM 1.5 mg/dL (0.6-1.3); POTASSIUM - SERUM 3.9 mmol/L (3.5-5.1)
--- NOTE | 2019-08-25 10:46 | NUR ---
DC'D CVL PER ORDERS. CATHETER TIP INTACT. INSTRUCTED PT TO LIE FLAT FOR 30 MINS. WILL CONT POC.
--- NOTE | 2019-08-25 10:56 | NUR ---
0700 PT RECIEVED UP IN CHAIR ALERT AN DORIENTED VSS SEE SHIFT ASSESSMENT FOR DETAILS [address] FLETCHER 1000 AMBULATED IN HALLWAY
--- NOTE | 2019-08-25 11:13 | NUR ---
DC INSTRUCTIONS REVIEWED WITH PT AND , DENY QUESTIONS
--- NOTE | 2019-08-25 11:39 | NUR ---
PT ASSISTED TO CAR WITH
--- NOTE | 2019-08-25 20:13 | MORECARE ---
CASE MANAGEMENT DISCHARGE SUMMARY PATIENT: RAKEL PAVON UNIT: [id number] ADM DATE: 08/22/19 AGE: 83 : [birth year] SEX: M ROOM/BED: D[facility] AUTHOR: AVINASH,DOC PHYSICIAN: REFERRING PHYSICIAN: GEOFFREY FLETCHER MD DATE OF SERVICE: 08/25/19 Discharge Plan Patient Name: RAKEL PAVON Facility: [facility]:[place] : 1935 Planned Disposition: Home Anticipated Discharge Date: Discharge Date: 08/25/2019 Expected LOS: Initial Reviewer: [email or web address] Initial Review Date: 08/22/2019 Generated: 08/25/19 9:13 pm Comments DCP- Discharge Planning Updated by [email or web address]: Anna Donaldson on 08/22/19 5:[address] Patient Name: RAKEL PAVON Admission Status: Urgent Accout number: [id number] Admission Date: 08-22-2019 : 1935 Admission Diagnosis: Attending: GEOFFREY FLETCHER Current LOS: 1 Anticipated DC Date: Planned Disposition: Home Primary Insurance: MEDICARE A & B Discharge Planning Comments: CM met with patient at bedside after explaining CM role and obtaining verbal consent. Patient lives at home with his [place] where he is independent with his care and plans to return there upon discharge. Patient feels this would be a safe discharge. CM discussed availability / needs of home health and medical equipment. Patient denies any discharge needs at this time. Patient states he will have his family drive him home upon discharge. CM will continue to follow and assist as needed with discharge planning / needs. Plumbing Assembler Installer: Anna Donaldson DCPIA - Discharge Planning Initial Assessment Updated by [id number]: Anna Donaldson on 08/22/19 5:23 pm * Is the patient Alert and Oriented? Yes * How many steps to enter\exit or inside your home? * PCP DR WAGNER * [facility] * Preadmission Environment Home with Family * ADLs Independent * Equipment Cane * List name and contact numbers for known caregivers / representatives who currently or will assist patient after discharge: TRACY PAVON - [facility] - [phone] * Verbal permission to speak to the caregivers and representatives has been obtained from the patient. Yes * Community resources currently utilized None * Additional services required to return to the preadmission environment? No * Can the patient safely return to the preadmission environment? Yes * Has this patient been hospitalized within the prior 30 days at any hospital? No Coverage Notice Reviewer: [id number] Poornima Donaldson Notice Issued Date-Time: 08/25/2019 9:45 Notice Type: IM Discharge Notice Notice Delivered To: Patient Relationship to Patient: Self Surveillance Officer Name: Delivery Method: HAND - Hand Delivered Shantal Days: Prior Verbal Notification: Recipient Understood Notice: Yes Recipient Signature: Yes Med Rec Note Co-signed by Attending: Coverage Notice Comment: Last DP export: 08/22/19 5:32 p Patient Name: RAKEL PAVON Page [id number] at 2013 All edits/amendments must be made on the electronic document DICTATION DATE: 08/25/192011 DISPOSAL PLANT OPERATOR: PRASAD 08/25/192011 RPT#: [id number] DC DATE:08/25/19 STATUS: DIS IN [facility] [address] [place] [address] END OF REPORT
--- NOTE | 2019-09-18 12:56 | OP ---
PATIENT NAME: RAKEL PAVON MEDICAL RECORD: [id number] :[birth year] LOCATION:[facility].CV04 ADMISSION DATE:08/22/19 SURGEON: GEOFFREY FLETCHER MD DATE OF OPERATION: 08/22/2019 SURGEON: Geoffrey Fletcher MD ANESTHESIA: General endotracheal, Dr. Jean-Baptiste. OPERATION PERFORMED: Right carotid endarterectomy with patch angioplasty. PREOPERATIVE DIAGNOSIS: Severe right internal carotid artery stenosis. POSTOPERATIVE DIAGNOSIS: Severe right internal carotid artery stenosis. INDICATION FOR OPERATION: Severe right internal carotid artery stenosis. FINDINGS AT OPERATION: Severe right internal carotid artery stenosis. There were no EEG changes with clamping or unclamping of the carotid artery. ESTIMATED BLOOD LOSS: Less than 100 mL. DESCRIPTION OF PROCEDURE: After informed consent, adequate preoperative medication evaluation, the patient was brought to the operating room, placed on the table in the supine position. After induction of general endotracheal anesthesia and application of appropriate monitoring devices, the right neck and chest were prepped and draped in sterile field, utilizing Betadine scrub, alcohol, and Betadine solution. Betadine-impregnated drape was also used. An oblique incision was made in the skin crease. Dissection carried down the fascia. Hemostasis maintained with electrocautery. Facial vein was identified and divided. Utilizing sharp dissection, the common carotid, internal and external carotid arteries were dissected free of surrounding structures, protecting the neurological structures. The patient was given a calculated dose of heparin. After 3 minutes, clamps were applied. After 2 minutes, no EEG change. The arteriotomy was made and extended with Dominguez scissors. Artery underwent endarterectomy sharply. Artery underwent extensive debridement and irrigation. Utilizing a CorMatrix vascular patch, a running 6-0 Prolene suture, the arteriotomy was closed with a patch angioplasty technique. All maneuvers to remove trapped air were performed. The clamps removed sequentially. There were no EEG changes. The patient was given a calculated dose of protamine to reverse the heparin. Hemostasis was achieved. A #7 Hakan-Poole drain was left in the depths of wound and brought through the base of the neck. Neck was again irrigated. Instrument count and sponge count were correct times 2. Neck was closed in layers utilizing 3-0 Vicryl on the platysma, 5-0 subcuticular Monocryl on skin. Sterile dressings were applied. The patient tolerated the procedure well and was transferred to CV ICU in satisfactory condition. TRANSINT:[id number] Voice Confirmation ID: [id number] DOCUMENT ID: [id number] OPERATIVE REPORT [id number] RAKEL PAVON EDWARD MD at 1256 CC: [id number] DICTATION DATE: 08/22/19 1256 SANITATION TECHNICIAN: 08/22/19 1309 DIS IN 08/25/19 [place] [id number] [place] [address]
== END 2019-08-25 11:30 | disposition home or self-care (01) | DRG 38 ==
LOC: D.CVICU 08-22 07:00 → D.SDCHOLD 08-22 07:00 → D.CVICU 08-22 11:18
PROVIDERS: Internal Medicine; ADMIT Internal Medicine Cardiovascular Disease; ATTEND Internal Medicine Cardiovascular Disease
PROC: 03UK0JZ Supplement Right Internal Carotid Artery with Synthetic Substitute, Open Approach (ICD-10-PCS; 2019-08-22)
PROC: 03CK0ZZ Extirpation of Matter from Right Internal Carotid Artery, Open Approach (ICD-10-PCS; principal; 2019-08-22 10:00)
DX: I65.23 Occlusion and stenosis of bilateral carotid arteries (principal); N17.9 Acute kidney failure, unspecified; I12.9 Hypertensive chronic kidney disease with stage 1 through stage 4 chronic kidney disease, or unspecified chronic kidney disease; N18.3 Chronic kidney disease, stage 3 (moderate)